=== PATIENT | male | born 1960 | race Caucasian/White ===

== ENCOUNTER 2017-01-25 15:31 | Outpatient (CLI) | payer OTHER ==
--- NOTE | 2017-01-26 05:48 | RAD ---
LEFT FOOT THREE VIEWS O17 No fracture or periosteal reaction was seen. There is no area of bony destruction. No cause for th e patient's pain was found, A tiny calcaneal spur was noted. IMPRESSION: No acute findings. POS: HOME
== END 2017-01-25 15:32 | disposition home or self-care (01) ==
LOC: BURRAD 15:31
PROVIDERS: ATTEND Family Medicine
DX: M79.672 Pain in left foot (principal)

== ENCOUNTER 2018-06-07 06:34 | Emergency (ER) | payer OTHER | END 2018-06-07 07:07 | disposition home or self-care (01) | LOC: BURERS 06:34 | DX: L03.116 Cellulitis of left lower limb (principal); Z79.899 Other long term (current) drug therapy | CPT/HCPCS: 99283 ==

== ENCOUNTER 2018-09-20 16:27 | Emergency (ER) | payer OTHER ==
[2018-09-20] MEDS ORDERED: HYDROcodone/Acetaminophen 10/325 mg Tablet ONE (17:43)
== END 2018-09-20 17:40 | disposition home or self-care (01) ==
LOC: BURERS 16:27
DX: M43.6 Torticollis (principal); I10 Essential (primary) hypertension
CPT/HCPCS: 99283